=== PATIENT | female | born 1995 | race Caucasian/White ===

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

== ENCOUNTER 2018-02-28 15:19 | Emergency (ER) | payer MEDICAID ==
[~2018-02-28] VITALS: Ht 157.5 cm; Wt 49.5 kg
[~2018-02-28 15:19] MED LIST changes: +HYDROCODON-ACE1 EAC7 PO; +IBUPROFEN600 MG PO
[2018-02-28 15:28] VITALS: Ht 157.5 cm; Wt 49.5 kg
[2018-02-28 15:49] LABS: BASOPHILS 0.2 % (0-2); EOSINOPHILS 1.7 % (0-7); HEMATOCRIT 33.1 % (36.0-48.0); HEMOGLOBIN 11.2 g/dL (12-16); IMMATURE GRANULOCYTES 0.5 % (0-5); LYMPHOCYTES 20.7 % (15-50); MCH 32.1 pg (26.0-34.0); MCHC 33.8 g/dL (31.0-37.0); MCV 94.8 fL (80.0-100.0); MEAN PLATELET VOLUME 8.4 fL (7.4-10.4); MONOCYTES 9.7 % (2-11); NEUTROPHILS 67.2 % (40-80); RBC 3.49 10x6/uL (4.00-5.40); RDW 13.5 % (11.5-14.5); WBC 10.3 10x3/uL (4.8-10.8)
[2018-02-28 15:55] LABS: APPEARANCE CLEAR (CLEAR); BILIRUBIN NEGATIVE (NEGATIVE); COLOR YELLOW (YELLOW); GLUCOSE NEGATIVE (NEGATIVE); KETONE NEGATIVE (NEGATIVE); NITRITE NEGATIVE (NEGATIVE); PLATELET COUNT 201 10x3/uL (130-400); PROTEIN NEGATIVE (NEGATIVE); SPECIFIC GRAVITY 1.005 (1.005-1.020); UROBILINOGEN NORMAL (NORMAL)
[2018-02-28 16:03] LABS: ALBUMIN 2.7 g/dL (3.4-5.0); ALKALINE PHOSPHATASE 50 U/L (46-116); ALT (SGPT) 12 U/L (10-68); BILIRUBIN - TOTAL 0.18 mg/dL (0.2-1.3); CALC OSMOLALITY 275 mosm/kg (275-300); CALCIUM 8.2 mg/dL (8.5-10.1); CARBON DIOXIDE 24.7 mmol/L (21.0-32.0); CHLORIDE - SERUM 104 mmol/L (98-107); CREATININE - SERUM 0.5 mg/dL (0.6-1.3); GLUCOSE 78 mg/dL (74-106); POTASSIUM - SERUM 3.6 mmol/L (3.5-5.1); PROTEIN - SERUM 6.6 g/dL (6.4-8.2); SODIUM 139 mmol/L (136-145); UREA NITROGEN 10 mg/dL (7-18); eGFR NON AFRICAN AMERICAN > 90 mL/min (90-120)
[2018-02-28] MEDS ORDERED: FEOSOL LIQ300 MG/5 M PO (18:07)
[2018-02-28 18:46] VITALS: BP 104/61
== END 2018-02-28 18:24 | disposition home or self-care (01) ==
LOC: D.ER 15:19
PROVIDERS: Family Medicine
DX: O26.892 Other specified pregnancy related conditions, second trimester (principal); Z3A.17 17 weeks gestation of pregnancy; E86.0 Dehydration; D64.9 Anemia, unspecified

== ENCOUNTER → 2018-05-22 15:15 | Outpatient (CLI) | payer MEDICAID ==
[2018-02-28 15:28] VITALS: BMI 19.9
[~2018-05-22 15:15] MED LIST changes: +FEOSOL LIQ300 MG/5 M PO
== END | disposition home or self-care (01) ==
LOC: D.LDO 15:15
PROVIDERS: ATTEND Obstetrics & Gynecology
DX: O26.90 Pregnancy related conditions, unspecified, unspecified trimester (principal)

== ENCOUNTER → 2018-05-26 07:52 | Outpatient (CLI) | payer MEDICAID ==
[2018-05-26 09:01] LABS: APPEARANCE CLEAR (CLEAR); BILIRUBIN NEGATIVE (NEGATIVE); COLOR STRAW (YELLOW); GLUCOSE NEGATIVE (NEGATIVE); KETONE NEGATIVE (NEGATIVE); NITRITE NEGATIVE (NEGATIVE); PROTEIN NEGATIVE (NEGATIVE); UROBILINOGEN NORMAL (NORMAL)
[2018-05-26 09:21] LABS: UDS - AMPHET NEGATIVE QUAL (NEGATIVE); UDS - BARB NEGATIVE QUAL (NEGATIVE); UDS - BENZO NEGATIVE QUAL (NEGATIVE); UDS - COCAINE NEGATIVE QUAL (NEGATIVE); UDS - OPIATE NEGATIVE QUAL (NEGATIVE); UDS - PCP NEGATIVE QUAL (NEGATIVE); UDS - THC NEGATIVE QUAL (NEGATIVE)
== END | disposition home or self-care (01) ==
LOC: D.LDO 07:52
PROVIDERS: Obstetrics & Gynecology
DX: O26.893 Other specified pregnancy related conditions, third trimester (principal); Z3A.29 29 weeks gestation of pregnancy; R30.0 Dysuria; R10.2 Pelvic and perineal pain

== ENCOUNTER 2018-06-18 18:44 | Outpatient (CLI) | payer MEDICAID ==
[2018-02-28 15:28] VITALS: BMI 19.9
[2018-06-18 19:27] LABS: APPEARANCE CLEAR (CLEAR); BILIRUBIN NEGATIVE (NEGATIVE); COLOR YELLOW (YELLOW); GLUCOSE 50 mg/dL (NEGATIVE); KETONE NEGATIVE (NEGATIVE); NITRITE NEGATIVE (NEGATIVE); PROTEIN NEGATIVE (NEGATIVE); UROBILINOGEN NORMAL (NORMAL)
== END 2018-06-18 19:55 ==
LOC: D.LDO 18:44
PROVIDERS: ATTEND Obstetrics & Gynecology
DX: O26.893 Other specified pregnancy related conditions, third trimester (principal); Z3A.32 32 weeks gestation of pregnancy

== ENCOUNTER → 2018-06-30 18:44 | Outpatient (CLI) | payer MEDICAID ==
[2018-02-28 15:28] VITALS: BMI 19.9
[2018-06-30 19:51] LABS: APPEARANCE CLEAR (CLEAR); BILIRUBIN NEGATIVE (NEGATIVE); COLOR STRAW (YELLOW); GLUCOSE NEGATIVE (NEGATIVE); KETONE NEGATIVE (NEGATIVE); NITRITE NEGATIVE (NEGATIVE); PROTEIN NEGATIVE (NEGATIVE); SPECIFIC GRAVITY 1.005 (1.005-1.020); UROBILINOGEN NORMAL (NORMAL)
[2018-06-30 19:52] LABS: BACTERIA FEW /hpf (NONE SEEN); EPITHELIAL CELLS 0-5 /hpf (0-5); RED CELLS - URINE RARE /hpf (0-5); WHITE CELLS - URINE OCC /hpf (0-5)
== END | disposition home or self-care (01) ==
LOC: D.LDO 18:44
PROVIDERS: ATTEND Obstetrics & Gynecology
DX: O36.5930 Maternal care for other known or suspected poor fetal growth, third trimester, not applicable or unspecified (principal); Z3A.34 34 weeks gestation of pregnancy

== ENCOUNTER → 2018-08-01 04:43 | Outpatient (CLI) | payer MEDICAID ==
[2018-02-28 15:28] VITALS: BMI 19.9
== END | disposition home or self-care (01) ==
LOC: D.LDO 04:43
PROVIDERS: ATTEND Obstetrics & Gynecology
DX: O26.893 Other specified pregnancy related conditions, third trimester (principal); Z3A.38 38 weeks gestation of pregnancy

== ENCOUNTER 2018-08-02 07:39 | Inpatient (IN) | payer MEDICAID ==
[2018-08-02 08:03] VITALS: BP 117/69
[2018-08-02 08:19] VITALS: BP 109/60; BMI 26.6
[2018-08-02 08:32] LABS: HEMATOCRIT 34.2 % (36.0-48.0); HEMOGLOBIN 11.7 g/dL (12-16); MCH 31.7 pg (26.0-34.0); MCHC 34.2 g/dL (31.0-37.0); MCV 92.7 fL (80.0-100.0); MEAN PLATELET VOLUME 9.3 fL (7.4-10.4); RBC 3.69 10x6/uL (4.00-5.40); RDW 12.3 % (11.5-14.5); WBC 11.1 10x3/uL (4.8-10.8)
[2018-08-02 08:40] LABS: UDS - AMPHET NEGATIVE QUAL (NEGATIVE); UDS - BARB NEGATIVE QUAL (NEGATIVE); UDS - BENZO NEGATIVE QUAL (NEGATIVE); UDS - COCAINE NEGATIVE QUAL (NEGATIVE); UDS - OPIATE NEGATIVE QUAL (NEGATIVE); UDS - PCP NEGATIVE QUAL (NEGATIVE); UDS - THC NEGATIVE QUAL (NEGATIVE)
--- NOTE | 2018-08-02 15:14 | NUR ---
RECEIVED VIABLE TERM FEMALE VAGINALLYPER DR Elenita OVIEDO. NOTING LUSTY SPONTANEOUS CRY AT APPROX 2 SECONDS AFTER DELIVERY OF BODY. 3 VESSEL UMBILICAL CORD STRIPPED THEN CLAMPED; CORD CUT PER FOB UNDER DIRCTION OF DR OVIEDO THEN HANDED TO NURSE. INFANT PLACED ON MOTHERS ABD FOR DRYING/STIMULATION THEN SKIN TO SKIN ON MOTHERS CHEST FOR BONDING. 1 AND 5 MIN APGARS 9 WITH 1 OFF FOR COLOR; HR 160'S AND 150'S RESPECTIVELY; RR 30'S AND 5O'S RESPECTIVELY. FOB ATTENTIVE AT BEDSIDE. STEVE. NO SIGNS OF RESP DISTRESS. MOTHER REQUESTS WEIGHTS, MEASURES WHICH WERE OBTAINED. OBTAINED. FOOTPRINTS DONE. ID BANSD AND HUGS BAND APPLIED. IFNANT RETURNED TO MOTHERS ARMS AT 1525 FOR SKIN TO SKIN BONDING. INFANT WOULD NOT LATCH TO BREAST. PLACED ON MOTHERS CHEST, BELLY TO BELLY. D STICK 40MG/DL AT 1537. STRESSED IMPORTANCE TO PARENTS THAT INFANT EAT WELL FOR BLOOD SUGAR TO RISE. ASSISTED MOTHER TO GET LATCHED AT 1539, INFANT NOTED WITH PROPER LATCH/SUCK/SWALLOW AND POSITIONING, FED FOR 9 MIN THEN WOULD NOT LATCH TO LEFT BREAST. LATCHED AT 1600 FOR 15 MIN. PARENTS BONDING WELL. NO SIGNS OF RESP DISTRESS.
--- NOTE | 2018-08-02 16:29 | NUR ---
D STICK 39MG/DL. MOTHER STATES SHE DOES NOT WANT TO GIVE FORMULA. INSTRUCTED MOTHER ON NEED TO GET BLOOD SUGAR UP IMMEDIATELY. MOTHER BREASTFED FOR A FEW MORE MIN THEN SAID NURSE COULD GIVE FORMULA. INFANT REMAINS STABLE WITH NO SIGNS OF DISTRESS. SKIN WARM DRY AND PINK. PARENTS BONDING WELL.
--- NOTE | 2018-08-02 17:06 | NUR ---
D STICK 66MG/DL. REMINDED MOTHER THAT INFANT STILL NEEDS TO GET BLOOD SUGARS BEFORE EACH FEEDING UNTIL 3 CONSECUTIVE SUGARS = OR >50MG/DL. TO [facility] STAFFORD OPENCRIB FOR WARMING. MOTHER STATES SHE WANTS BATHED AFTER WARMED, NOT TO DELAY BATH. MOTHER STATES SHE DOES NOT WANT HEPATITIS B VACCINE GIVEN.
--- NOTE | 2018-08-02 17:15 | NUR ---
DR SNIDER AT BEDSIDE FOR EXAM. STATUS REPORT GIVEN, INCLUDING BLOOD SUGARS. REMAINS STBLE IN NBN WITH NO SIGNS OF RESP DISTRESS ERICKSON THER DISTRES NOTED OR REPORTED.
--- NOTE | 2018-08-02 18:01 | NUR ---
REMAINS STABLE IN NBN WITH NO SIGNS OF RESP DISTRESS OR OTHER DISTRSS NOTED. SKIN WARM DRY AND PINK
--- NOTE | 2018-08-02 19:16 | NUR ---
C/O HEADACHE AND ABD. CRAMPING. REQUESTED TYLENOL FOR DISCOMFORT. MED GIVEN ORDERED. LYING ON BED WITH FOB.
[2018-08-02 19:18] VITALS: BP 109/63
--- NOTE | 2018-08-02 19:18 | NUR ---
PT. AWAKE AND ORIENTED. INFANT IN ROOM FOR FEEDING. FUNDUS FIRM. U/2 AND LOCHIA RUBRA MOD. BREATH SOUNDS CLEAR AND BOWEL SOUNDS AUDIBLE. FOB LYING IN BED.
--- NOTE | 2018-08-02 20:41 | NUR ---
PT. SITTING UP IN BED HOLDING INFANT. STATES SHE JUST BREASTFED AND IS STILL HAVING SOME ABD. CRAMPING BUT IT IS LESS THAN EARLIER. EXPLAINED REASON FOR UTERINE CRAMPING WITH . PT. STATED UNDERSTANDING.
--- NOTE | 2018-08-02 22:20 | NUR ---
PT. SITTING UP IN BED EATING AND WATCHING TV. IN OPEN CRIB AT BEDSIDE. STATES IV IS PAINFUL AND DESIRES REMOVED. SAME DONE WITH INTACT CATH. TIP NOTED. DENIES ANY OTHER NEEDS.
[2018-08-03 00:08] VITALS: BP 108/62
--- NOTE | 2018-08-03 00:08 | NUR ---
PT AMB TO FIELD SUPPORT ENGINEER, REQUESTS PAIN MED, PT AND THIS RN TO ROOM, PT BACK TO BED, VS OBTAINED, ADM NORCO PER MD ORDERS, SEE EMAR, PT DENIES FURTHER NEEDS, IN OPEN CRIB CART, FOB ASLEEP IN BED WITH PT
--- NOTE | 2018-08-03 00:08 | NUR ---
LATE ENTRY: FF, ML, U/U, PT REPORTS LITE BLEEDING WITH NO CLOTS
--- NOTE | 2018-08-03 02:45 | NUR ---
PT RESTING WITH EYES CLOSED, RESP QUIET, NO DISTRESS NOTED, LEFT UNDISTURBED AT THIS TIME, IN OPEN CRIB CART AT BEDSIDE, FOB ASLEEP IN BED WITH PT
--- NOTE | 2018-08-03 05:00 | NUR ---
SITTING UP IN BED FEEDING . CHEERFUL AND DENIES ANY NEEDS.
--- NOTE | 2018-08-03 06:28 | NUR ---
LYING ON RT SIDE. RESPIRATIONS UNLABORED. INFANT IN OPEN CRIB AT BEDSIDE. LIGHTS IN ROOM PRESENTLY DIMMED.
[2018-08-03 07:01] LABS: BASOPHILS 0.1 % (0-2); EOSINOPHILS 0.8 % (0-7); HEMATOCRIT 32.5 % (36.0-48.0); IMMATURE GRANULOCYTES 0.4 % (0-5); LYMPHOCYTES 15.1 % (15-50); MCH 31.9 pg (26.0-34.0); MCHC 33.8 g/dL (31.0-37.0); MCV 94.2 fL (80.0-100.0); MEAN PLATELET VOLUME 8.9 fL (7.4-10.4); MONOCYTES 10.1 % (2-11); NEUTROPHILS 73.5 % (40-80); PLATELET COUNT 151 10x3/uL (130-400); RBC 3.45 10x6/uL (4.00-5.40); RDW 12.5 % (11.5-14.5); WBC 16.6 10x3/uL (4.8-10.8)
--- NOTE | 2018-08-03 07:02 | NUR ---
ASSUMED CARE OF PATIENT AT THIS TIME. SITTING UP IN BED HOLDING INFANT. GETTING READY TO BREASTFEED. FOB SLEEPING IN BED. DENIES NEEDING ANYTHING AT THIS TIME. WILL COMPLETE SHIFT ASSESSMENT AFTER AND BREAKFAST. SIDE RAILS UP X 2.
[2018-08-03 07:53] VITALS: BP 102/54
--- NOTE | 2018-08-03 07:57 | NUR ---
FINISHED . REQUESTED MEDICATION FOR CRAMPING. 09/14. MOTRIN 600 MG GIVEN PO FOR RELIEF AFTER DISCUSSING PAIN MEDICATION OPTIONS. REGULAR DIET AT BEDSIDE. VS OBTAINED. WILL COMPLETE SHIFT ASSESSMENT AFTER BREAKFAST. FOB SLEEPING IN BED. SIDE RAILS UP X 2, CALL LIGHT IN REACH.
[2018-08-03 08:13] LABS: RAPID PLASMA REAGIN Non Reactive (Non Reactive)
--- NOTE | 2018-08-03 08:51 | NUR ---
ENTERED ROOM TO COMPLETE SHIFT ASSESSMENT. LAYING IN BED, EYES CLOSED HOLDING IN ARMS. REMINDED NOT TO SLEEP IN BED WHILE HOLDING . PLACED IN CRIB. FOB SLEEPING IN BED. SHIFT ASSESSMENT COMPLETED. DENIES PAIN. SAYS HER CRAMPING IS GONE. SIDE RAILS UP X 2, CALL LIGHT IN REACH.
--- NOTE | 2018-08-03 08:52 | NUR ---
SAYS SHE STARTE FEELING CRAMPING AGAIN. OFFERED NORCO ORDERED. DECLINED AT THIS TIME. EXPLAINED TO PATIENT THAT CRAMPING MAY BE INTERMITTENT AND REASON. TO CALL IF DESIRES ADDITIONAL PAIN MEDICATION. ENCOURAGED TO DRINK PLENTY OF FLUIDS TO MAINTAIN HYDRATION IN SUPPORT OF . FRESH WATER GIVEN. TO CALL IF ANYTHING IS NEEDED. 0+, RUBELLA NON-IMMUNE, NON SMOKER, -GBS. ANTICIPATE DC HOME TODAY.
--- NOTE | 2018-08-03 09:35 | NUR ---
DR OVIEDO VISITED.
--- NOTE | 2018-08-03 10:15 | NUR ---
SITTING UP IN BED. FOB IN BED, INFANT IN ROOM. DENIES NEEDING ANYTHING OR PAIN/CRAMPING AT THIS TIME. NO REQUESTS. TO CALL IF ANYTHING IS NEEDED.
--- NOTE | 2018-08-03 11:14 | NUR ---
REQUESTED ADDITIONAL PAIN MEDICATION FOR RETURN OF ABDOMINAL CRAMPING 07/15. NORCO 5 MG GIVEN PO FOR RELIEF. AMBULATING IN ROOM. NO ADDITIONAL REQUESTS. INFORMATION GIVEN REGARDING MMR VACCINATION. PT WILL LET RN KNOW IF SHE DESIRES. FOB AND INFANT IN ROOM.
--- NOTE | 2018-08-03 12:11 | NUR ---
FINISHED SHOWER, AMBULATING IN ROOM. SAYS SHE IS NO LONGER FEELING CRAMPING. 0. AND FOB IN ROOM. WAITING ON LUNCH. NO ADDITIONAL REQUESTS. TO CALL IF ANYTHING IS NEEDED. ANTICIPATE DC HOME THIS AFTERNOON.
[2018-08-03] MEDS ORDERED: HYDROCODON-ACE1 EAC7 PO (12:50)
[2018-08-03] MEDS ORDERED: IBUPROFEN600 MG PO (12:51)
--- NOTE | 2018-08-03 12:58 | NUR ---
AMBULATED TO NURSES DESK. REQUESTED GUEST TRAY FOR FOB. ORDER PLACED. HAS COUPON. WILL NEED TDAP IN 2020 PER [place] [facility]MMUNIZATION REPORT.
--- NOTE | 2018-08-03 14:17 | NUR ---
CURRENTLY . DECLINES MMR VACCINATION. DISCUSSED IMPORTANCE OF VACCINE AND ENCOURAGED TO OBTAIN AT SOMETIME. INSTRUCTED IF SHE DOES DECIDE TO OBTAIN TO AVOID FOR AT LEAST 30 DAYS. VERBALIZED UNDERSTANDING. DENIES PAIN "A LITTLE CRAMPING" WHILE . WILL GIVE MOTRIN WHEN TIME. FOB REMAINS IN ROOM. SIDERAILS UP X 2, CALL LIGHT IN REACH.
--- NOTE | 2018-08-03 14:34 | NUR ---
MOTRIN 600 MG GIVEN PO FOR RELIEF OF CRAMPING. DISCUSSED THAT IS SHOULD HELP WITH CRAMPING NEXT COUPLE OF FEEDINGS. FOB BABY ASKED WHY THEY HAD TO WAIT TILL 24 HOURS TO DRAW BABY BLOOD. EXPLAINED THAT IT IS STANDARD PROCEDURE TO WAIT UNTIL 24 HOURS OLD TO DRAW BILIRUBIN LAB. SAYS THEY ARE READY TO GET HOME TO THEIR [age] YEAR OLD. EXPLAINED WILL GET THEM DISCHARGE AZEEM. PT NICE AND UNDERSTANDS.
--- NOTE | 2018-08-03 15:08 | NUR ---
DC TEACHING COMPLETED SO THAT PATIENT WILL BE READY TO GO WHEN DISCHARGED. VERBAL AND WRITTEN INFORMATION INCLUDED ROUTINE PP CARE, /BREAST CARE, S&S INFECTION, MEDICATION ADMINISTRATION, PP DEPRESSION, DANGER SIGNS, IMMUNIZATIONS AND FOLLOW-UP. WILL NEED TDAP IN 2020. VERBALIZED UNDERSTANDING. NO SPECIFIC QUESTIONS. SAYS SHE HAS PP APPOINTMENT ALREADY SCHEDULED. FOB IN ROOM, INFANT TO NURSERY FOR VS AND LAB WORK. TO CALL IF ANYTHING IS NEEDED.
--- NOTE | 2018-08-03 15:51 | NUR ---
SITTING UP ON BED, HOLDING . DENIES CRAMPING OR PAIN NOW. SAYS THEY COME AND GO. SAYS CRAMPS WERE A 7 BUT NONE NOW. WAITING FOR INFANT DC HOME.
--- NOTE | 2018-08-03 16:51 | NUR ---
GETTING DRESSED FOR DISCHARGE. WAITING ON NURSERY RN TO COMPLETE DC.
--- NOTE | 2018-08-03 17:35 | NUR ---
DC'D VIA WHEELCHAIR TO CAR. IN ARMS. ALL BELONGINGS REMOVED FROM ROOM. FOB DRIVING. WAS PLACED IN CARSEAT BY MOTHER. HAS WRITTEN PRESCRIPTIONS AND DC INSTRUCTIONS.
--- NOTE | 2018-08-19 12:44 | MORECARE ---
CASE MANAGEMENT DISCHARGE SUMMARY PATIENT: COSMO YANCEY UNIT: [id number] ADM DATE: 08/02/18 AGE: 22 : [birth year] SEX: F ROOM/BED: D.1227 AUTHOR: LISY CAMARA PHYSICIAN: REFERRING PHYSICIAN: DAVID DUBON MD DATE OF SERVICE: 08/19/18 Discharge Plan Patient Name: COSMO YANCEY [facility] 1995 Planned Disposition: Anticipated Discharge Date: Discharge Date: 08/03/2018 Expected LOS: Initial Reviewer: [email or web address] Initial Review Date: 08/02/2018 Generated: 08/19/18 1:44 pm Patient Name: COSMO YANCEY Page [id number] at 1244 All edits/amendments must be made on the electronic document DICTATION DATE: 08/19/18 1244 LOG SCALER: [email or web address] 08/19/18 1244 RPT#: [id number] DC DATE:08/03/18 STATUS: DIS IN [facility] [address] [place] [address] END OF REPORT
== END 2018-08-03 17:35 | disposition home or self-care (01) | DRG 807 ==
LOC: D.LD 07:39
PROVIDERS: Obstetrics & Gynecology; ADMIT Obstetrics & Gynecology; ATTEND Obstetrics & Gynecology
PROC: 10E0XZZ Delivery of Products of Conception, External Approach (ICD-10-PCS; principal; 2018-08-02)
PROC: 10907ZC Drainage of Amniotic Fluid, Therapeutic from Products of Conception, Via Natural or Artificial Opening (ICD-10-PCS; 2018-08-02)
PROC: 3E033VJ Introduction of Other Hormone into Peripheral Vein, Percutaneous Approach (ICD-10-PCS; 2018-08-02)
DX: O80 Encounter for full-term uncomplicated delivery (principal); Z37.0 Single live birth; Z3A.39 39 weeks gestation of pregnancy